=== PATIENT | female | born 1935 | race Caucasian/White ===

== ENCOUNTER → 2016-05-04 | Outpatient (CLI) | payer MEDICARE, MEDICAID ==
[~2016-05-04] MED LIST: ASPIRIN81 MG ORAL; CARDIAZEM CD240 MG ORAL; CARTIA XT120 MG ORAL; CRESTOR10 M1 ORAL; DIOVAN HCT 80MG1 TAB ORAL; DIOVAN40 MG ORAL; EVISTA60 MG ORAL; LOVAZA1 GM ORAL; NEXIUM20 MG ORAL; NEXIUM40 MG ORAL; RYTHMOL150 MG ORAL; SERTRALINE HCL50 MG ORAL; XARELTO10 MG ORAL; ZETIA10 MG ORAL
--- NOTE | 2016-05-04 16:16 | Diagnostic Imaging Report ---
Indication: COUGH Technique: Multiple views of the maxillofacial sinuses Comparison: None Findings: No definite sinus opacification demonstrated. Nasal septum is midline Impression: No definite sinus disease. Note, however, limited sensitivity of plain films for such. Consider CT for more sensitive characterization if clinically indicated
--- NOTE | 2016-05-05 09:26 | Diagnostic Imaging Report ---
Indication: COUGH Technique: 2 views of the chest Comparison: 03/11/2015. Findings: Lungs and pleural spaces are clear. Heart size is normal. There are mild degenerative changes of the thoracic spine. No significant interim change Impression: No acute process
== END | disposition home or self-care (01) ==
LOC: RAD 15:03
DX: R05 Cough (principal)
CPT/HCPCS: 70220; 71020